=== PATIENT | male | born 1990 | race Two or more races ===

== ENCOUNTER 2025-01-01 15:03 | Outpatient (AMB) | payer OTHER, SELFPAY ==
[2025-01-01 15:12] VITALS: BP 104/70; PULSE 91; O2SAT 97; BMI 37.9
--- NOTE | 2025-01-01 15:12 | A.OFFVIS_ITS ---
Vital Signs 01/01/25 15:12 Height 5 ft 9 in Weight 257 lb BMI 37.9 BP 104/70 Blood Pressure Location Lt brachial Position Sitting Pulse 91 Pulse Source Pulse Oximeter Pulse Oximetry (%) 97 Oxygen Delivery Method Room Air Intake Visit Reasons: Obstructive sleep apnea Intake Note: pt is here as a new patient for sleep study follow up, he does snore, maybe one episode of gasping Diesel Engine Inspector Required: No Allergies No Known Allergies Allergy (Verified 01/01/25 15:59) Medication List - Last Reconciled 01/01/25 by Karl Dixon MD cetirizine (Zyrtec) 10 mg PO DAILY PRN Do you need a note to return to daycare/school/sports/work: No HPI HPI Obstructive sleep apnea: Details: This 34 years old gentleman is being seen for the 1st time for management of his severe sleep apnea. 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 He smokes about 3-4 cigarettes a day . Denies using any illicit drugs. Has been grossly obese for the last many years. About 5 years ago when he was still living with his mom he was told that he snores a lot. Lately his girlfriend has alerted him that he is a heavy snorer at night and he has very frequent respiratory pauses. This has been going on for at least 4-5 years. Asked about daytime sleepiness and he denies. He stays that he is very energetic during the daytime and he keeps himself busy with physical work and does not fall asleep. However in the evenings when he goes home he is somewhat tired. He has mild allergic rhinitis and uses Zyrtec 10 mg once a day p.r.n.. He denies any other chronic illness and especially denies hypertension diabetes mellitus or chronic pulmonary diseases. Patient had home-based sleep study through [facility] regional sleep program. The study was on 12/18 2024. The report which I have reviewed myself, demonstrates that he has very severe obstructive sleep apnea with the total sleep time AHI 60. Snoring was. Moderate Mean oxygen saturation 89.9% and lowest O2 saturation 66%. O2 sat below 88% for 106 minutes. With these findings he was trying to make appointment with the sleep MD in [facility] system, and he could not see anyone before June 2025. For this reason he called our office, and was able to get appointment to see me today. [facility] Medical History (Updated 01/01/25 @ 16:17 by Karl Dixon MD) Nocturnal hypoxemia JAIMIE (obstructive sleep apnea) Obesity (BMI 30.0-34.9) Social History Patient Tobacco Use Status: Current everyday Tobacco user Cigarette Packs Per Day: 0.25 Cigarettes Per Day: 3 Review of Systems Const All systems reviewed & are unremarkable except as noted in HPI and below Eyes Reports no additional complaints ENT Reports nasal congestion (Mild off and on) Card Denies chest pain, Denies syncope, Denies irregular heart rhythm, Denies leg edema and Denies dyspnea Resp Reports as per HPI, Denies cough, Denies dyspnea and Denies wheezing GI Reports no additional complaints Reports no additional complaints Musc Reports no additional complaints Skin/Breast Reports system reviewed and no additional complaints, except as documented Neuro Reports no additional complaints and Denies syncope Psych Reports no additional complaints Endo Reports no additional complaints Aller/Immun Denies wheezing Physical Exam Vital Signs: Last Vital Signs Pulse 91 01/01/25 15:12 BP 104/70 01/01/25 15:12 Pulse Ox 97 01/01/25 15:12 Oxygen Delivery Method Room Air 01/01/25 15:12 BMI result Body Mass Index 37.9 Const General: healthy appearing (Except for being overweight), comfortable, no acute distress, alert and awake Orientation/consciousness: patient oriented x3 HEENT Head: Yes normal to inspection General nose exam: No nasal polyps present and No nasal discharge present Face and sinus: Yes sinuses nontender Mouth: oropharynx abnormals (Oropharynx is very crowded and narrow, Mallampati class 4) Throat: Yes posterior oropharynx normal Eyes General: appearance normal, both eyes and all related structures Neck Neck: Yes normal visual inspection, Yes no lymphadenopathy, Yes trachea midline, Yes no JVD and Yes other (Neck circumference 17 in) Thyroid: Thyroid normal Chest Chest palpation & inspection: normal inspection of the chest, normal palpation of entire chest wall and no tenderness Resp Effort & Inspection: normal respiratory effort Auscultation: clear to auscultation bilaterally, no crackles and no wheezes Cardio Palpation: normal PMI Rate: regular rate Rhythm: regular rhythm Heart sounds: no gallops and no murmurs Peripheral pulses: Peripheral pulses 2+ throughout GI Palpation (GI): Soft to palpation, Tenderness to palpation present (GI), No hepatosplenomegaly present, Palpable mass present and Other GI palpation findings present (Abdomen is obese and somewhat protuberant.) Auscultation: normal bowel sounds Back/Spine/Pelvis Thoracic/Lumbar Spine: thoracic and lumbar spine normal to inspection Skin General skin exam: no rashes or lesions noted Neuro General: patient oriented x3 and no focal motor deficits Cranial nerves: Yes CN's II-XII intact bilaterally Extrem General: Yes normal to inspection, Yes no clubbing, cyanosis or edema and Yes no calf tenderness Psych Appearance: grossly normal and well kempt Speech and movement: Normal speech and movement present Results Reviewed Results Reviewed: Report of home-based sleep study on 12/18/2024 at [facility] is reviewed. As noted above in HPI, he has very severe obstructive sleep apnea with total sleep time AHI of 60, average O2 sat around 89% and lowest O2 sat of 66%. O2 sat below 88% for 106 minutes. This represents sleep-related hypoventilation. Assessment & Plan Assessment & Plan (1) Obesity (BMI 30.0-34.9): Comment: Patient has been grossly obese for the last many years. Code(s): E66.811 - Obesity, class 1 Category: Medical Plan: Discussed with him about his weight problem. He needs to join a weight management program. But at this time the priority is to control his obstructive sleep apnea (2) JAIMIE (obstructive sleep apnea): Comment: Very severe obstructive sleep apnea as per sleep study. It is associated with significant nocturnal hypoxemia, Code(s): G47.33 - Obstructive sleep apnea (adult) (pediatric) Category: Medical Plan: He should have CPAP titration study in the sleep lab., to determine the optimal pressure and also to ensure that hypoxemia is treated. As per his insurance coverage ( [employer] ) he should have CPAP titration in the sleep lab of [facility]. However if there is an undue delay in that procedure then I will go ahead and just order a CPAP with auto PAP mode, because he needs to be treated as quickly as possible. This gentleman has relatively poor understanding about his sleep apnea and the treatment plan. So I and my medical surgery nurse spent plenty of time in talking to him and educating him about this. (3) Nocturnal hypoxemia: Comment: As noted above he had significant nocturnal hypoxemia. This is reflective of sleep-related hypoventilation. He does not have any chronic lung disease. Code(s): G47.34 - Idiopathic sleep related nonobstructive alveolar hypoventilation Category: Medical Plan: I think once he is being treated with CPAP his hypoxemia would resolve. So we are trying to schedule his CPAP titration study in the sleep lab Coding Level of Care Code New Pt Level 4 (93552) Diagnoses Obesity (BMI 30.0-34.9) E66.811 JAIMIE (obstructive sleep apnea) G47.33 Nocturnal hypoxemia G47.34
--- OUTSIDE RECORDS SUMMARY | 2025-01-01 16:08 | XMS_ITS | Clinical Summary ---
Author Organization [facility] ity Address [address] [place] [address] Care Team Providers Care Novelty Twister Operator Name Role Phone Unavailable Primary Care Provider Unavailabl e Social History Tobacco Use Types Packs/Day Years Used Date Smoking Tobacco: Never Assessed Sex and Gender Information Value Date Recorded Sex Assigned at Not on file Legal Sex Male 9:16 AM EST Gender Identity Not on file Sexual Orientation Not on file Plan of Treatment Health Maintenance Due Date Last Done Comments DTaP,Tdap,and Td Vaccines (1 - Tdap) 2007 Hepatitis B Vaccines (1 of 3 - 19+ 3-dose series) 2007 COVID-19 Vaccine (2023-2 5 season) 2024 Influenza Vaccine (#1) 2024 HIB Vaccines Aged Out No longer eligi ble based on patient's age to complete this topic HPV Vaccines Aged Out No longer eligi ble based on patient's age to complete this topic Hepatitis A Vaccines Aged Out No long er eligible based on patient's age to complete this topic IPV Vaccines Aged Out No longer eligi ble based on patient's age to complete this topic MMR Vaccines Aged Out No longer eligi ble based on patient's age to complete this topic Meningococcal ACWY Vaccine Aged Out N o longer eligible based on patient's age to complete this topic Meningococcal B Vacine Aged Out No lo nger eligible based on patient's age to complete this topic Pneumococcal Vaccine: Pediat rics (0 to 5 Years) and At-Risk Patients (6 to 64 Years) Aged Out No longer eligible b ased on patient's age to complete this topic RSV Immunization Patients Un gilberto 20 months Aged Out No longer eligible b ased on patient's age to complete this topic Varicella Vaccines Aged Out No longer eligible based on patient's age to complete this topic
== END 2025-01-01 15:46 | disposition home or self-care (01) ==
PROVIDERS: PCP Registered Nurse; Referring Provider Registered Nurse; Visit Provider Internal Medicine
DX: E66.811 Obesity, class 1 (principal); G47.33 Obstructive sleep apnea (adult) (pediatric); G47.34 Idiopathic sleep related nonobstructive alveolar hypoventilation
CPT/HCPCS: 99204

== ENCOUNTER → 2025-01-01 15:03 | Outpatient (BNVA) | payer OTHER, SELFPAY | PROVIDERS: PCP Registered Nurse; Referring Provider Registered Nurse; Visit Provider Internal Medicine ==

== ENCOUNTER 2025-03-03 15:18 | Outpatient (AMB) | payer OTHER, SELFPAY ==
[2025-03-03 15:29] VITALS: BP 124/70; PULSE 96; O2SAT 99; BMI 38.4
--- NOTE | 2025-03-03 15:29 | A.OFFVIS_ITS ---
Vital Signs 03/03/25 15:29 Height 5 ft 9 in Weight 260 lb BMI 38.4 BP 124/70 Blood Pressure Location Lt brachial Position Sitting Pulse 96 Pulse Source Pulse Oximeter Pulse Oximetry (%) 99 Oxygen Delivery Method Room Air Intake Visit Reasons: Obstructive sleep apnea Intake Note: pt is here for follow up of sleep study results. Supervisor Dairy Sanitation Required: No Allergies No Known Allergies Allergy (Verified 03/03/25 15:45) Medication List - Last Reconciled 03/03/25 by Karl Dixon MD cetirizine (Zyrtec) 10 mg PO DAILY PRN Do you need a note to return to daycare/school/sports/work: No HPI HPI Obstructive sleep apnea: Details: THIS 34 YEARS OLD GENTLEMAN WITH THE GROSS OBESITY, HAS COMPLEX TYPE OF OBSTRUCTIVE SLEEP APNEA WITH NOCTURNAL HYPOXEMIA. HE UNDERWENT CPAP TITRATION STUDY AT [facility], THE STUDY WAS RELATIVELY DIFFICULT AND HE REQUIRED IVAPS MODE OF TREATMENT. SIMPLE CPAP SETTING AND BIPAP SETTINGS WERE NOT ENOUGH TO TREAT HIS JAIMIE/HYPOXEMIA. WITH THIS MODE HE DID NOT NEED TO USE OXYGEN. HE CLAIMS THAT IT WAS SOMEWHAT TOUGH TO GO THROUGH THE PROCEDURE AT NIGHT BUT ADMITS THAT HIS SLEEP AT THE END WAS DEFINITELY BETTER THAN BEFORE. HE STILL CONTINUES TO HAVE POOR SLEEP AND DAYTIME FATIGUE/SLEEPINESS. HE IS NOT ABLE TO LOSE MUCH WEIGHT SO FOR. [facility] Medical History (Updated 03/03/25 @ 15:57 by Karl Dixon MD) Obesity (BMI 30-39.9) Nocturnal hypoxemia JAIMIE (obstructive sleep apnea) Obesity (BMI 30.0-34.9) Social History Patient Tobacco Use Status: Current everyday Tobacco user Cigarette Packs Per Day: 0.25 Cigarettes Per Day: 3 Review of Systems Const All systems reviewed & are unremarkable except as noted in HPI and below Eyes Reports no additional complaints ENT Reports nasal congestion (Mild off and on) Card Denies chest pain, Denies syncope, Denies irregular heart rhythm, Denies leg edema and Denies dyspnea Resp Reports as per HPI, Denies cough, Denies dyspnea and Denies wheezing GI Reports no additional complaints Reports no additional complaints Musc Reports no additional complaints Skin/Breast Reports system reviewed and no additional complaints, except as documented Neuro Reports no additional complaints and Denies syncope Psych Reports no additional complaints Endo Reports no additional complaints Aller/Immun Denies wheezing Physical Exam Vital Signs: Last Vital Signs Pulse 96 03/03/25 15:29 BP 124/70 03/03/25 15:29 Pulse Ox 99 03/03/25 15:29 Oxygen Delivery Method Room Air 03/03/25 15:29 BMI result Body Mass Index 38.4 Const General: healthy appearing (Except for being overweight), comfortable, no acute distress, alert and awake Orientation/consciousness: patient oriented x3 HEENT Head: Yes normal to inspection General nose exam: No nasal polyps present and No nasal discharge present Face and sinus: Yes sinuses nontender Mouth: oropharynx abnormals (Oropharynx is very crowded and narrow, Mallampati class 4) Throat: Yes posterior oropharynx normal Eyes General: appearance normal, both eyes and all related structures Neck Neck: Yes normal visual inspection, Yes no lymphadenopathy, Yes trachea midline, Yes no JVD and Yes other (Neck circumference 17 in) Thyroid: Thyroid normal Chest Chest palpation & inspection: normal inspection of the chest, normal palpation of entire chest wall and no tenderness Resp Effort & Inspection: normal respiratory effort Auscultation: clear to auscultation bilaterally, no crackles and no wheezes Cardio Palpation: normal PMI Rate: regular rate Rhythm: regular rhythm Heart sounds: no gallops and no murmurs Peripheral pulses: Peripheral pulses 2+ throughout GI Palpation (GI): Soft to palpation, Tenderness to palpation present (GI), No hepatosplenomegaly present, Palpable mass present and Other GI palpation findings present (Abdomen is obese and somewhat protuberant.) Auscultation: normal bowel sounds Back/Spine/Pelvis Thoracic/Lumbar Spine: thoracic and lumbar spine normal to inspection Skin General skin exam: no rashes or lesions noted Neuro General: patient oriented x3 and no focal motor deficits Cranial nerves: Yes CN's II-XII intact bilaterally Extrem General: Yes normal to inspection, Yes no clubbing, cyanosis or edema and Yes no calf tenderness Psych Appearance: grossly normal and well kempt Speech and movement: Normal speech and movement present Results Reviewed Results Reviewed: CPAP TITRATION STUDY AT [facility] ON 02/12/2025 IS REVIEWED WITH THE PATIENT. HE REQUIRED I HAVE iVAPS WITH EPAP 9 TVa 4.5 PS 4-20 . Assessment & Plan Assessment & Plan (1) JAIMIE (obstructive sleep apnea): Comment: Very severe obstructive sleep apnea as per sleep study. It is associated with significant nocturnal hypoxemia, [place] [facility] [place] Code(s): G47.33 - Obstructive sleep apnea (adult) (pediatric) Category: Medical Plan: Start him on CPAP therapy with fullface mask, of large size. iVAPS settings EPAP 9 TVa 4.5 PS 4-20 IA 15 EXPLAINED TO THE PATIENT THAT HE IS GOING TO BE ON SPECIAL SETTINGS AND HAS TO U SE THE CPAP VERY REGULARLY AT NIGHT. Also explained that he has to try to sleep in lateral position. (2) Nocturnal hypoxemia: Comment: As noted above he had significant nocturnal hypoxemia. This is reflective of sleep-related hypoventilation. He does not have any chronic lung disease. With the CPAP titration and use of iVAPS settings there was no residual hypoxemia Code(s): G47.34 - Idiopathic sleep related nonobstructive alveolar hypoventilation Category: Medical Plan: He will not need O2 supplementation along with CPAP (3) Obesity (BMI 30-39.9): Comment: He is grossly obese BMI = 38.4 Code(s): E66.9 - Obesity, unspecified Category: Medical Plan: Discussed with him about his weight Told him that if he could lose 10% of the current weighed his sleep apnea may resolve by more than 50%. He seems to be motivated. Will try to do it on his own but if not succeeding then he will consider going to a weight management program. Coding Level of Care Code Est Pt Level 3 (72382) Diagnoses JAIMIE (obstructive sleep apnea) G47.33 Nocturnal hypoxemia G47.34 Obesity (BMI 30-39.9) E66.9
--- OUTSIDE RECORDS SUMMARY | 2025-03-03 18:12 | XMS_ITS | Clinical Summary ---
Author Organization [facility] ity Address [address] [place] [address] Care Team Providers Care Hoisting Engine Operator Name Role Phone Unavailable Primary Care [...] Vaccine (2023-2 5 season) 2024 Influenza Vaccine (Season Ended) 2025 HIB Vaccines Aged Out No longer eligi [...] age to complete this topic Meningococcal B Vaccine Aged Out No l onger eligible based on patient's age to complete [...]
== END 2025-03-03 15:46 | disposition home or self-care (01) ==
LOC: HO.HPS 15:18
PROVIDERS: PCP Registered Nurse; Visit Provider Internal Medicine
DX: G47.33 Obstructive sleep apnea (adult) (pediatric) (principal); G47.34 Idiopathic sleep related nonobstructive alveolar hypoventilation; E66.9 Obesity, unspecified
CPT/HCPCS: 99213